=== PATIENT | female | born 1980 | race Caucasian/White ===

== ENCOUNTER 2025-11-02 15:45 | Outpatient (CLI) | payer BC, MEDICAID, SELFPAY ==
--- NOTE | 2025-11-02 16:15 | CT_ITS ---
WS: [id number] CT chest wo con [id number] HISTORY: lung nodules TECHNIQUE: Axial imaging performed through the thorax. Coronal and sagittal reformats are submitted. All CT scans at [facility] use at least one of these dose optimization techniques: automated exposure control; mA and/or kV adjustment per patient size (includes targeted exams where dose is matched to clinical indication); or iterative reconstruction. CONTRAST: None DLP: 231.44 mGy.cm COMPARISON: No recent CTs of the chest have been performed for reevaluation of pulmonary nodules. Lungs and central airway: Lungs are well aerated. There are numerous very small nodules within both lungs. Some of these nodules are subsolid and some contain calcifications. These nodules range in size from 2 to 4 mm. No mass. No pneumonia. Pleura: Normal. No pleural effusion. Heart and pericardium: Normal size heart with no pericardial effusion. Mediastinum and mariam: Small mediastinal and hilar lymph nodes. No adenopathy. Vessels: Normal size aortic and pulmonary artery. No coronary artery calcifications. Chest wall and lower neck: No soft tissue masses. Upper abdomen: Stomach is overly distended with food products. Noncontrast evaluation of the liver and spleen is negative. No adrenal mass. Osseous structures: No destructive bone lesions. Several Schmorl's nodes within the thoracic vertebral bodies. CT/CT chest wo con [id number] IMPRESSION: 1. Numerous bilateral pulmonary nodules ranging in size from 2 to 4 mm. With h istory of smoking consider follow-up CT in 1 year. 2. No mass or pneumonia. 3. No adenopathy.
== END 2025-11-02 15:46 | disposition home or self-care (01) ==
LOC: RAD 15:49
PROVIDERS: PCP Nurse Practitioner Family; Visit Provider Internal Medicine
DX: J44.9 Chronic obstructive pulmonary disease, unspecified (principal); Z87.891 Personal history of nicotine dependence; M51.44 Schmorl's nodes, thoracic region; R31.0 Gross hematuria
CPT/HCPCS: 71250